=== PATIENT | female | born 1965 ===

== ENCOUNTER 2024-05-06 05:06 | Day surgery (SDC) | payer OTHER ==
[~2024-05-06 05:06] MED LIST: ACTOS15 MG PO; CATAFLAN; JARDIANCE25 MG PO; LIPITOR40 M1 PO; PROTONIX40 MG PO; VASOTEC5 MG PO
[2024-05-06] MEDS ORDERED: FLUMAZENIL 0.5 MG/5 ML ML IV STA (14:49)
[2024-05-06] MEDS ORDERED: MIDAZOLAM HCL 2 MG/2 ML VIAL IV ONE (15:00)
[2024-05-06] MEDS ORDERED: DIPHENHYDRAMINE HCL 50 MG/ML VIAL 1ML IV ONE ×2 (15:00)
[2024-05-06] MEDS ORDERED: fentaNYL CITRATE 50 MCG/ML AMPUL IV PUSH ONE (15:00)
== END 2024-05-06 16:50 | disposition home or self-care (01) ==
LOC: AMB-ENDOS 05:06 → ADM 05:06 → CIR.AMB 07:00 → AMB-ENDOS 16:50
PROVIDERS: ATTEND Internal Medicine
DX: K63.5 Polyp of colon (principal); R19.4 Change in bowel habit; K62.5 Hemorrhage of anus and rectum; K57.30 Diverticulosis of large intestine without perforation or abscess without bleeding; K50.10 Crohn's disease of large intestine without complications